=== PATIENT | male | born 1950 | race African-American/Black ===

== ENCOUNTER 2020-01-27 01:51 | Emergency (ER) | payer OTHER, MEDICAID ==
[~2020-01-27] VITALS: Ht 172.7 cm; Wt 69.0 kg
[2020-01-27 04:11] LABS: BASOPHILS % 0.7 % (0.0-2.0); HEMOGLOBIN. 7.8 g/dL (14.0-18.0); LYMPHOCYTES % 20.3 % (20.0-50.0); MEAN CORPUSCULAR VOLUME 74.2 fL (80.0-94.0); MEAN PLATELET VOLUME 7.1 fl (7.4-10.4); MONOCYTES % 7.8 % (2.0-8.0); NEUTROPHILS % 69.2 % (40.0-76.0); PLATELET 315 x1000/uL (130-400); RED BLOOD CELL COUNT 3.37 mill/uL (4.7-6.1)
[2020-01-27 04:15] VITALS: BP 140/82
[2020-01-27 04:25] LABS: CHLORIDE 112 mEq/L (98-107)
== END 2020-01-27 04:25 | disposition home or self-care (01) ==
LOC: ER 01:51
DX: N40.1 Benign prostatic hyperplasia with lower urinary tract symptoms (principal); R33.8 Other retention of urine; D64.9 Anemia, unspecified; F12.10 Cannabis abuse, uncomplicated; Z98.890 Other specified postprocedural states; Z86.19 Personal history of other infectious and parasitic diseases
CPT/HCPCS: 36415; 80053; 85025; 99283